=== PATIENT | female | born 1955 | race Caucasian/White ===

== ENCOUNTER → 2017-02-06 | Outpatient (CLI) | payer MEDICARE, OTHER | LOC: MRI 01-30 10:00 | DX: C50.112 Malignant neoplasm of central portion of left female breast (principal); R93.421 Abnormal radiologic findings on diagnostic imaging of right kidney; R93.422 Abnormal radiologic findings on diagnostic imaging of left kidney; N20.0 Calculus of kidney; N28.89 Other specified disorders of kidney and ureter | CPT/HCPCS: 74183; A9577 ==